=== PATIENT | male | born 1990 | race Two or more races ===

== ENCOUNTER 2023-07-08 10:16 | Inpatient (IN) | payer SELFPAY ==
[~2023-07-08] VITALS: Ht 160 cm; Wt 45.0 kg
[2023-07-08] MEDS ORDERED: SODIUM CHLORIDE 0.9% 1,350 ML IV ONE (11:15)
[2023-07-08 11:35] LABS: Basophils # (auto) 0 10 ^3/uL (0-0.2); Basophils % (auto) 0.1 % (0.0-2.0); Eosinophils # (auto) 0 10 ^3/uL (0-0.8); Eosinophils % (auto) 0.1 % (0.0-7.0); Hematocrit 43.2 % (41.0-53.0); Hemoglobin 14.6 g/dL (13.5-17.5); Lymphocytes % (auto) 42.3 % (10.0-50.0); Mean Corpuscular Hemoglobin 28.3 pg (28.0-32.0); Mean Corpuscular Hgb Conc. 33.7 g/dL (32.0-36.0); Mean Corpuscular Volume 84.2 fL (80.0-100.0); Monocytes # (auto) 0.7 10 ^3/uL (0-1.3); Monocytes % (auto) 10.1 % (0.0-12.0); Neutrophils # (auto) 3.3 10 ^3/uL (1.6-8.6); Neutrophils % (auto) 47.4 % (37.0-80.0); Nucleated Red Blood Cells % 0.4 %; Red Blood Cells 5.13 10^6/uL (4.5-5.90); Red Cell Distribution Width 12.6 % (11.8-14.3)
[2023-07-08 11:42] LABS: Urine Bacteria FEW /hpf (None Seen); Urine Blood Negative /uL (Negative); Urine Clarity Clear (Clear); Urine Color Yellow (Yellow); Urine Protein, UAD 1+ (Negative); Urine Specific Gravity 1.028 (1.001-1.035); Urine Urobilinogen Normal (Negative); Urine WBC 2 /hpf (0 - 3); Urine pH 5.5 (5.0-8.0)
[2023-07-08 11:52] LABS: Amphetamine Screen, Urine Neg (NEGATIVE); Barbiturate Scree,Urine Neg (NEGATIVE); Benzodiazephine Screen, Urine Neg (NEGATIVE); Cocaine Screen, Urine Neg (NEGATIVE); Opiate Scree,Urine Neg (NEGATIVE)
[2023-07-08 11:53] LABS: Cannabinoid Screen, Urine Pos (NEGATIVE); Phencyclidine Screen, Urine Neg (NEGATIVE)
[2023-07-08 11:55] LABS: Acetaminophen < 2.0 UG/ML (10.0-20.0)
[2023-07-08 11:56] LABS: Alanine Aminotransferase 118 U/L (7-40); Albumin 4.7 g/dL (3.2-4.8); Alkaline Phosphatase 254 U/L (46-116); Anion Gap 12 (5-15); Aspartate Aminotransferase 108 U/L (13-40); BUN/Creatinine Ratio 23.2 (10.0-20.0); Bilirubin, Total 1.2 mg/dL (0.2-1.0); Blood Urea Nitrogen 13 mg/dL (9-23); Calcium 11.5 mg/dL (8.7-10.4); Carbon Dioxide 21 mmol/L (20-30); Chloride 100 mmol/L (98-107); Glucose 121 mg/dL (74-106); Lipase 35 U/L (12-53); Sodium 133 mmol/L (136-145); Total Protein 7.4 g/dL (5.7-8.2)
[2023-07-08 11:58] LABS: Free T4 (Free Thyroxine) 11.87 ng/dL (0.89-1.76)
[2023-07-08] MEDS ORDERED: ONDANSETRON HCL 4 MG/2 ML VIAL IV ONE (12:00)
[2023-07-08 12:11] LABS: Salicylate < 3.0 mg/dL (2.8-20.0)
[2023-07-08] MEDS ORDERED: DexAMETHasone SOD PHOS 10MG/1ML VIAL INJ IV ONE (13:00)
[2023-07-08] MEDS ORDERED: methIMAzole 5 MG TAB PO ONE ×2 (13:00→14:15)
[2023-07-08] MEDS ORDERED: PROPYLTHIOURACIL 50 MG TAB PO ONE (13:00)
[2023-07-08 16:07] LABS: Base Excess -5.2 mmol/L (-2.0-2.0)
[2023-07-08] MEDS ORDERED: DOCUSATE SOD 100 MG CAP PO PRN (18:30)
[2023-07-08] MEDS ORDERED: NITROGLYCERIN 0.4 MG SL TAB SL PRN (18:30)
[2023-07-08] MEDS ORDERED: ACETAMINOPHEN 325 MG TAB PO PRN (18:30)
[2023-07-08] MEDS ORDERED: MORPHINE SULFATE INJ 2 MG/ml SYRG IV PRN (18:30)
[2023-07-08] MEDS ORDERED: ONDANSETRON HCL 4 MG/2 ML VIAL IV PRN (18:30)
[2023-07-08] MEDS: SODIUM CHLORIDE 0.9% 1,000 ML IV SCH ×2 (19:44→23:46)
[2023-07-08] MEDS: methIMAzole 5 MG TAB PO SCH (23:41)
[2023-07-08] MEDS: PROPRANOLOL HCL 20 MG TAB PO SCH (23:42)
[2023-07-09] VITALS (8 sets, daily range): BP systolic 128–159; BP diastolic 80–95; PULSE 90–109; RESP 16–22; TEMP 97.6–97.9; O2SAT 95–100
[2023-07-09 05:16] LABS: Basophils # (auto) 0 10 ^3/uL (0-0.2); Eosinophils # (auto) 0 10 ^3/uL (0-0.8); Hematocrit 36.5 % (41.0-53.0); Hemoglobin 12.6 g/dL (13.5-17.5); Lymphocytes # (auto) 1.3 10 ^3/uL (0.4-5.4); Lymphocytes % (auto) 26.9 % (10.0-50.0); Mean Corpuscular Hemoglobin 28.5 pg (28.0-32.0); Mean Corpuscular Hgb Conc. 34.5 g/dL (32.0-36.0); Mean Corpuscular Volume 82.6 fL (80.0-100.0); Monocytes # (auto) 0.6 10 ^3/uL (0-1.3); Monocytes % (auto) 12.6 % (0.0-12.0); Neutrophils % (auto) 60.5 % (37.0-80.0); Nucleated Red Blood Cells % 0.1 %; Red Blood Cells 4.41 10^6/uL (4.5-5.90); Red Cell Distribution Width 13.1 % (11.8-14.3)
[2023-07-09 05:33] LABS: Alanine Aminotransferase 97 U/L (7-40); Alkaline Phosphatase 224 U/L (46-116); Anion Gap 8 (5-15); BUN/Creatinine Ratio 24.4 (10.0-20.0); Blood Urea Nitrogen 11 mg/dL (9-23); Calcium 10.3 mg/dL (8.7-10.4); Carbon Dioxide 25 mmol/L (20-30); Chloride 105 mmol/L (98-107); Glucose 187 mg/dL (74-106); Potassium 3.4 mmol/L (3.5-5.1); Sodium 138 mmol/L (136-145)
[2023-07-09 05:34] LABS: Albumin 4.2 g/dL (3.2-4.8)
[2023-07-09 05:35] LABS: Aspartate Aminotransferase 57 U/L (13-40); Bilirubin, Total 0.7 mg/dL (0.2-1.0); Total Protein 6.7 g/dL (5.7-8.2)
[2023-07-09 05:53] LABS: Triglycerides 73 mg/dL (< 150)
[2023-07-09 05:54] LABS: LDL Cholesterol 41 mg/dL (< 100)
[2023-07-09 05:55] LABS: Cholesterol 96 mg/dL (< 200); HDL Cholesterol 35 mg/dL (40-59)
[2023-07-09] MEDS: methIMAzole 5 MG TAB PO SCH ×3 (06:47→21:59)
[2023-07-09] MEDS: PROPRANOLOL HCL 20 MG TAB PO SCH ×2 (09:58→21:58)
[2023-07-09] MEDS: ENOXAPARIN SOD 40 MG/0.4 ML SYRINGE SC SCH (10:12)
[2023-07-09] MEDS: SODIUM CHLORIDE 0.9% 1,000 ML IV SCH ×3 (10:12→22:00)
[2023-07-09] MEDS ORDERED: POTASSIUM EFFERVESENT TAB 25 MEQ PO ONE (11:45)
[2023-07-10] VITALS (7 sets, daily range): BP systolic 115–137; BP diastolic 64–79; PULSE 73–90; RESP 16–22; TEMP 97.8–98.3; O2SAT 97–100
[2023-07-10] MEDS: SODIUM CHLORIDE 0.9% 1,000 ML IV SCH ×2 (04:05→10:45)
[2023-07-10] MEDS: methIMAzole 5 MG TAB PO SCH ×3 (06:12→22:56)
[2023-07-10] MEDS: ENOXAPARIN SOD 40 MG/0.4 ML SYRINGE SC SCH (10:27)
[2023-07-10] MEDS: PROPRANOLOL HCL 20 MG TAB PO SCH ×2 (10:27→22:55)
[2023-07-11 05:00] VITALS: BP 130/58; PULSE 88; RESP 18; TEMP 97.9; O2SAT 100
[2023-07-11] MEDS: methIMAzole 5 MG TAB PO SCH (05:17)
[2023-07-11 08:15] VITALS: BP 109/52; PULSE 73; RESP 18; TEMP 97.3
[2023-07-11 09:00] VITALS: BP 109/53; PULSE 73; RESP 18; TEMP 97.7; O2SAT 95
[2023-07-11] MEDS: PROPRANOLOL HCL 20 MG TAB PO SCH (09:54)
[2023-07-11] MEDS: ENOXAPARIN SOD 40 MG/0.4 ML SYRINGE SC SCH (09:55)
[2023-07-11] MEDS ORDERED: METH-552 PO (11:53)
[2023-07-11 12:31] VITALS: BP 109/52; PULSE 73; RESP 18; TEMP 97.7; O2SAT 95
[2023-07-12 10:38] LABS: Hepatitis B Surface Antigen Negative (Negative)
[2023-07-12 10:59] LABS: Hepatitis A Ab IgM Negative
[2023-07-12 11:00] LABS: Hepatitis B Core IgM Negative; Hepatitis C Antibody Negative (Negative)
== END 2023-07-11 13:20 | disposition home or self-care (01) | DRG 645 ==
LOC: ER 10:16 → TELE 18:25 → TELE-CENTR 07-09 08:15
PROVIDERS: ADMIT Nurse Practitioner Family; ATTEND Internal Medicine
DX: E05.90 Thyrotoxicosis, unspecified without thyrotoxic crisis or storm (principal); F12.10 Cannabis abuse, uncomplicated; R00.0 Tachycardia, unspecified; R11.2 Nausea with vomiting, unspecified; R50.9 Fever, unspecified; R74.01 Elevation of levels of liver transaminase levels; Z90.49 Acquired absence of other specified parts of digestive tract; Z79.899 Other long term (current) drug therapy; Z87.891 Personal history of nicotine dependence
CPT/HCPCS: 36415; 36600; 71045; 74176; 76536; 80053; 80061; 80074; 80307; 80320; 80329; 81001; 82805; 83036; 83605; 83690; 84439; 84443; 84481; 85025; 87040; 96361; 96374; 99291; G0378; J1100; J2405

== ENCOUNTER 2024-10-10 09:49 | Inpatient (IN) | payer MEDICAID, OTHER ==
[~2024-10-10] VITALS: Ht 160 cm; Wt 52.0 kg
[~2024-10-10 09:49] MED LIST: METH-552 PO
--- NOTE | 2024-10-10 10:53 | ED.PDOC ---
HPI Comments 34 y/o M, with PMHX of HTN, anxiety, and hyperthyroid presents to the ED for CC of high blood pressure. Patient states, that he has been experiencing high blood pressure reading with associated heart palpitations x hours. Patient relays, that he experiences heart palpitations with light exertion when going up his stairs. Patient denies chest pain, dizziness, headache, or shortness of breath. No other symptoms or modifying factors at this time. Chief Complaint: High Blood Pressure Time Seen by MD: 10:00 Reviewed Notes: Nurses Notes, Medications, Allergies Allergies: Coded Allergies: NO KNOWN ALLERGIES (Unverified , 07/08/23) Home Meds Active Scripts Methimazole (Methimazole) 10 Mg Tab, 10 MG PO TID, #90 TAB 5 Refills Prov:JARET WARREN MD 07/11/23 Information Source: Patient Mode of Arrival: Ambulatory Severity: Moderate Timing: Hours Duration: Since onset Prehospital treatment: None Onset: With Light Exertion Cardiac Risk Factors: None PE Risk Factors: None History of: None Associated Signs and Symptoms: Palpitations Past Medical History PAST MEDICAL HISTORY: Denies Surgical History: Cholecystectomy Family History Family History: Reviewed,noncontributory to illness Social History Smoker: Quit Less Than 1 Year Alcohol: Denies ETOH Use Drugs: Marijuana Lives In: Home Constitutional: denies: chills, diaphoresis, fatigue, fever, malaise, sweats, weakness, others EENTM: denies: blurred vision, double vision, ear bleeding, ear discharge, ear drainage, ear pain, ear ringing, eye pain, eye redness, hearing loss, mouth pain, mouth swelling, nasal discharge, nose bleeding, nose congestion, nose pain, photophobia, tearing, throat pain, throat swelling, voice changes, others Respiratory: denies: cough, hemoptysis, orthopnea, SOB at rest, shortness of breath, SOB with excertion, stridor, wheezing, others Cardiovascular: reports: palpitations; denies: chest pain, dizzy spells, diaphoresis, Dyspnea on exertion, edema, irregular heart beat, left arm pain, lightheadedness, PND, syncope, others Gastrointestinal: denies: abdomen distended, abdominal pain, blood streaked bowels, constipated, diarrhea, dysphagia, difficulty swallowing, hematemesis, melena, nausea, poor appetite, poor fluid intake, rectal bleeding, rectal pain, vomiting, others Genitourinary: denies: burning, dysuria, flank pain, frequency, hematuria, incontinence, penile discharge, penile sore, pain, testicle pain, testicle swelling, urgency, others Neurological: denies: dizziness, fainting, headache, left sided numbness, left sided weakness, numbness, paresthesia, pre-existing deficit, right sided numbness, right sided weakness, seizure, speech problems, tingling, tremors, weakness, others Musculoskeletal: denies: back pain, gout, joint pain, joint swelling, muscle pain, muscle stiffness, neck pain, others Integumetry: denies: bruises, change in color, change in hair/nails, dryness, laceration, lesions, lumps, rash, wounds, others Allergic/Immunocompromised: denies: Difficulty Healing, Frequent Infections, Hives, Itching, others Hematologic/Lymphatic: denies: anemia, blood clots, easy bleeding, easy bruising, swollen glands, others Endocrine: denies: excessive hunger, excessive sweating, excessive thirst, excessive urination, flushing, intolerance to cold, intolerance to heat, unexplained weight gain, unexplained weight loss, others Psychiatric: denies: anxiety, bipolar disorder, depression, hopeless, panic disorder, schizophrenia, sleepless, suicidal, others All Other Systems: Reviewed and Negative Physical Exam General Appearance: Moderate Distress HEENT: Normal ENT Inspection, Pharynx Normal, TMs Normal Neck: Full Range of Motion, Non-Tender, Normal, Normal Inspection Respiratory: Chest Non-Tender, Lungs Clear, No Accessory Muscle Use, No Respiratory Distress, Normal Breath Sounds Cardiovascular: Tachycardia Breast Exam: Deferred Gastrointestinal: No Organomegaly, Non Tender, No Pulsatile Mass, Normal Bowel Sounds, Soft Genitalia: Deferred Pelvic: Deferred Rectal: Deferred Extremities: No calf tenderness, Normal capillary refill, Normal inspection, Normal range of motion, Non-tender, No pedal edema Musculoskeletal : Apperance: Normal Neurologic: Alert, chemistry associate II-XII nml as Tested, No Motor Deficits, Normal Affect, Normal Mood, No Sensory Deficits Cerebellar Function: Normal Reflexes: Normal Skin: Dry, Normal Color, Warm Peripheral Pulses: 3+ Radial (R), 3+ Radial (L) Lymphatic: No Adenopathy Was a procedure done? Was a procedure done?: No CP Differential Dx Differential Diagnosis: A-fib, A-Flutter, Angina, Anxiety / Panic Attack, Atrial Dysrhythmia, Electrolyte Disorder Differential Diagnosis: HTN Essential, HTN Accelerated Differential Diagnosis: Chest Wall Pain, Costochondritis X-Ray, Labs, Meds, VS Vital Signs Date Time Temp Pulse Resp B/P (MAP) Pulse Ox O2 Delivery O2 Flow Rate FiO2 10/10/24 10:16 98.9 154 19 147/111 (123) 98 10/10/24 10:15 135 Lab Test 10/10/24 10:38 Range/Units White Blood Count 8.9 4.4-10.8 10^3/uL Red Blood Count 4.99 4.5-5.90 10^6/uL Hemoglobin 14.9 13.5-17.5 g/dL Hematocrit 43.0 41.0-53.0 % Mean Corpuscular Volume 86.2 80.0-100.0 fL Mean Corpuscular Hemoglobin 30.0 28.0-32.0 pg Mean Corpuscular Hemoglobin Concent 34.8 32.0-36.0 g/dL Red Cell Distribution Width 12.0 11.8-14.3 % Platelet Count 312 140-450 10^3/uL Mean Platelet Volume 8.7 6.9-10.8 fL Neutrophils (%) (Auto) 50.6 37.0-80.0 % Lymphocytes (%) (Auto) 37.8 10.0-50.0 % Monocytes (%) (Auto) 11.1 0.0-12.0 % Eosinophils (%) (Auto) 0.3 0.0-7.0 % Basophils (%) (Auto) 0.2 0.0-2.0 % Neutrophils # (Auto) 4.5 1.6-8.6 10 ^3/uL Lymphocytes # (Auto) 3.3 0.4-5.4 10 ^3/uL Monocytes # (Auto) 1.0 0-1.3 10 ^3/uL Eosinophils # (Auto) 0 0-0.8 10 ^3/uL Basophils # (Auto) 0 0-0.2 10 ^3/uL Nucleated Red Blood Cells 0.1 % Sodium Level 134 L 136-145 mmol/L Potassium Level 3.7 3.5-5.1 mmol/L Chloride Level 98 98-107 mmol/L Carbon Dioxide Level 26 20-31 mmol/L Anion Gap 10 5-15 Blood Urea Nitrogen 15 9-23 mg/dL Creatinine 0.71 0.700-1.30 mg/dL Glomerular Filtration Rate Calc 123 >90 mL/min BUN/Creatinine Ratio 21.1 H 10.0-20.0 Serum Glucose 152 H 74-106 mg/dL Calcium Level 11.3 H 8.7-10.4 mg/dL Troponin I High Sensitivity 30 </=54 ng/L Patient alert. Complaining of palpitations. Tachycardia. Blood sugar elevated. Cardiac marker within normal limits. Possibly will need echocardiogram. Continues to be tachycardic. Explained to the patient. EKG reviewed does not show any acute process. Cardiology consultation. Continue cardiac monitoring. Time of 1ST Reevaluation: 10:30 Reevaluation 1ST: Unchanged Patient Education/Counseling: Diagnosis, Treatment Family Education/Counseling: No Family Present Additional Information I reviewed the following notes from patient's past medical encounters: 07/08/23 The following tests were ordered, and results were reviewed by me: TROPONIN, CBC, BMP, EKG I discussed treatment and results with medical personnel and: PATIENT Departure 1 Departure Time of Disposition: 14:45 Impression: Primary Impression: Tachycardia Additional Impression: Hyperthyroidism Disposition: 09 ADMITTED INPATIENT Admit to: Med Surg Condition: Guarded Critical Care Note Critical Care Time?: Yes (45 min-critical care time only) Critical care comment: Tachycardia Stability Stability form required: No Heart Score Heart Score: Heart Score Response (Comments) Value History Slightly Suspicious 0 EKG Normal 0 Age <45 0 Risk Factors 1 or 2 risk factors 1 Troponin Normal limit 0 Total 1 I personally scribed for MANOHAR JAMES MD ([email or web address]) on 10/10/24 at 10:53. Electronically submitted by Cecile Macedo ([email or web address]). I personally scribed for MANOHAR JAMES MD ([email or web address]) on 10/10/24 at 11:47. Electronically submitted by Cecile Macedo ([email or web address]). MANOHAR JAMES MD Oct 10, 2024 10:53
[2024-10-10 10:58] LABS: Basophils # (auto) 0 10 ^3/uL (0-0.2); Basophils % (auto) 0.2 % (0.0-2.0); Eosinophils # (auto) 0 10 ^3/uL (0-0.8); Eosinophils % (auto) 0.3 % (0.0-7.0); Hemoglobin 14.9 g/dL (13.5-17.5); Lymphocytes # (auto) 3.3 10 ^3/uL (0.4-5.4); Lymphocytes % (auto) 37.8 % (10.0-50.0); Mean Corpuscular Hgb Conc. 34.8 g/dL (32.0-36.0); Mean Corpuscular Volume 86.2 fL (80.0-100.0); Monocytes % (auto) 11.1 % (0.0-12.0); Neutrophils # (auto) 4.5 10 ^3/uL (1.6-8.6); Neutrophils % (auto) 50.6 % (37.0-80.0); Nucleated Red Blood Cells % 0.1 %; Platelet Count (auto) 312 10^3/uL (140-450); Red Blood Cells 4.99 10^6/uL (4.5-5.90); White Blood Cell 8.9 10^3/uL (4.4-10.8)
[2024-10-10 11:13] LABS: Potassium 3.7 mmol/L (3.5-5.1)
[2024-10-10 11:14] LABS: Anion Gap 10 (5-15); Carbon Dioxide 26 mmol/L (20-31)
[2024-10-10 11:19] LABS: BUN/Creatinine Ratio 21.1 (10.0-20.0); Blood Urea Nitrogen 15 mg/dL (9-23); Calcium 11.3 mg/dL (8.7-10.4); Chloride 98 mmol/L (98-107); Sodium 134 mmol/L (136-145)
[2024-10-10 11:22] LABS: Glucose 152 mg/dL (74-106)
[2024-10-10] MEDS ORDERED: NITROGLYCERIN 0.4 MG SL TAB SL PRN (18:45)
[2024-10-10] MEDS ORDERED: MORPHINE SULFATE INJ 2 MG/ml SYRG IV PRN (18:45)
[2024-10-10] MEDS ORDERED: ACETAMINOPHEN 325 MG TAB PO PRN (18:45)
[2024-10-10] MEDS ORDERED: ONDANSETRON HCL 4 MG/2 ML VIAL IV PRN (18:45)
--- NOTE | 2024-10-10 20:00 | DVH ---
ULTRASOUND SOFT TISSUE HEAD AND NECK CLINICAL INDICATION: Hyperthyroidism TECHNIQUE: Multiple real time sonographic images of the thyroid were obtained. COMPARISON: 07/08/2023 FINDINGS: The right thyroid gland measures 5.1 x 2.7 x 2.9 cm. The left thyroid gland measures approximately 5 x 2.4 x 3 cm. The isthmus measures 0.6 cm. Heterogeneous hypervascular thyroid with no focal nodules noted. IMPRESSION: Heterogeneous, hypervascular enlarged thyroid with no focal nodules noted. Differentials include thyr oiditis/Graves disease.
[2024-10-10] MEDS: PROPRANOLOL HCL 20 MG TAB PO ONE (20:01)
[2024-10-10 20:28] VITALS: PULSE 120; RESP 20; O2SAT 95
[2024-10-10 20:55] VITALS: PULSE 104; RESP 16; O2SAT 98
[2024-10-10] MEDS: methIMAzole 5 MG TAB PO SCH (21:29)
[2024-10-10 22:00] VITALS: BP 125/85; PULSE 104; RESP 16; TEMP 98.2; O2SAT 95
[2024-10-11] VITALS (8 sets, daily range): BP systolic 114–138; BP diastolic 68–81; PULSE 93–109; RESP 15–18; TEMP 97.8–98.5; O2SAT 97–100
--- NOTE | 2024-10-11 00:15 | DVHHP2 ---
History of Present Illness Reason for Visit: Palpitations History of Present Illness 34-year-old male presents for evaluation of palpitations. Patient reports having history of hyperthyroid. He states being taken off his methimazole on July last year. He reports a four day history of having intermittent palpitations. He states today the symptoms were more constant with associated shortness for breath. He denies chest pain or dizziness. Denies any other acute symptoms at the moment. Past Medical History Hyperthyroid Past Surgical History Cholecystectomy Family History Noncontributory Smoke: <1 pack per day ALCOHOL: none Drugs: Marijuana Lives: with Family Review of Systems Review of Systems Review of systems are currently negative otherwise addressed HPI. Allergies: Coded Allergies: NO KNOWN ALLERGIES (Unverified , 07/08/23) Medications Current Medications Medications Dose Ordered Sig/Lisa Route Start Time Stop Time Status Last Admin Dose Admin Propranolol HCl 40 mg TID PO 10/11/24 06:00 Methimazole 10 mg Q8HR PO 10/10/24 22:00 10/10/24 21:29 10 MG Temazepam 15 mg QHSP PRN PO 10/10/24 18:45 Ondansetron HCl 4 mg Q4HP PRN IV 10/10/24 18:45 Acetaminophen 650 mg Q6HP PRN PO 10/10/24 18:45 Nitroglycerin 0.4 mg Q5MINP PRN SL 10/10/24 18:45 Morphine Sulfate 2 mg Q30M PRN IV 10/10/24 18:45 Exam Vital Signs Vital Signs Date Time Temp Pulse Resp B/P (MAP) Pulse Ox O2 Delivery O2 Flow Rate FiO2 10/10/24 22:00 98.2 104 16 125/85 (98) 95 98.2 10/10/24 20:55 Room Air* 0 21 Exam Gen: 34-year-old male in mild distress Skin: Warm, dry, normal color and texture, no rash. HEENT: Normocephalic atraumatic, mucous membranes moist and pink. Neck: Cervical and supraclavicular nodes normal without enlargement, trachea is midline, thyroid gland is normal without masses. Pulmonary: Clear to auscultation and percussion bilaterally. Cardiac: Sinus tachycardic Abdomen: Soft, nontender, nondistended, bowel sounds present all 4 quadrants, no guarding, no rigidity, no organomegaly. Extremities: No cyanosis, clubbing, no edema Neuro: Cranial nerves II through XII grossly intact, normal affect and speech, no focal motor deficits. Labs/Xrays ORDERING PHYSICIAN: ISMAEL JORGENSEN PROCEDURE(s): THYDU - THYROID REASON: hyperthyroid ORDER NUMBER(s): [id number], ACCESSION NUMBER(s): [id number] ULTRASOUND SOFT TISSUE HEAD AND NECK CLINICAL INDICATION: Hyperthyroidism TECHNIQUE: Multiple real time sonographic images of the thyroid were obtained. COMPARISON: 07/08/2023 FINDINGS: The right thyroid gland measures 5.1 x 2.7 x 2.9 cm. The left thyroid gland measures approximately 5 x 2.4 x 3 cm. The isthmus measures 0.6 cm. Heterogeneous hypervascular thyroid with no focal nodules noted. IMPRESSION: Heterogeneous, hypervascular enlarged thyroid with no focal nodules noted. Differentials include thyroiditis/Graves disease. Labs Test 10/10/24 19:43 10/10/24 10:38 Range/Units White Blood Count 8.9 4.4-10.8 10^3/uL Red Blood Count 4.99 4.5-5.90 10^6/uL Hemoglobin 14.9 13.5-17.5 g/dL Hematocrit 43.0 41.0-53.0 % Mean Corpuscular Volume 86.2 80.0-100.0 fL Mean Corpuscular Hemoglobin 30.0 28.0-32.0 pg Mean Corpuscular Hemoglobin Concent 34.8 32.0-36.0 g/dL Red Cell Distribution Width 12.0 11.8-14.3 % Platelet Count 312 140-450 10^3/uL Mean Platelet Volume 8.7 6.9-10.8 fL Neutrophils (%) (Auto) 50.6 37.0-80.0 % Lymphocytes (%) (Auto) 37.8 10.0-50.0 % Monocytes (%) (Auto) 11.1 0.0-12.0 % Eosinophils (%) (Auto) 0.3 0.0-7.0 % Basophils (%) (Auto) 0.2 0.0-2.0 % Neutrophils # (Auto) 4.5 1.6-8.6 10 ^3/uL Lymphocytes # (Auto) 3.3 0.4-5.4 10 ^3/uL Monocytes # (Auto) 1.0 0-1.3 10 ^3/uL Eosinophils # (Auto) 0 0-0.8 10 ^3/uL Basophils # (Auto) 0 0-0.2 10 ^3/uL Nucleated Red Blood Cells 0.1 % Sodium Level 134 L 136-145 mmol/L Potassium Level 3.7 3.5-5.1 mmol/L Chloride Level 98 98-107 mmol/L Carbon Dioxide Level 26 20-31 mmol/L Anion Gap 10 5-15 Blood Urea Nitrogen 15 9-23 mg/dL Creatinine 0.71 0.700-1.30 mg/dL Glomerular Filtration Rate Calc 123 >90 mL/min BUN/Creatinine Ratio 21.1 H 10.0-20.0 Serum Glucose 152 H 74-106 mg/dL Calcium Level 11.3 H 8.7-10.4 mg/dL Troponin I High Sensitivity 30 </=54 ng/L Thyroid Stimulating Hormone (TSH) 0.01 L 0.55-4.78 uIU/mL Assessment/Plan Assessment/Plan Assessment Thyroid crisis Palpitations Plan Admit the patient to telemetry to the hospitalist Endocrinology consultation Resume methimazole Start propranolol Thyroid panel pending Continue treatment per orders Plan discussed with: Patient My Orders Orders - ISMAEL JORGENSEN Procedure Category Date Status Time Methimazole Tab PHA 10/10/24 In Process (Tapazole) 22:00 Thyroid Panel LAB 10/10/24 In Process 18:41 Basic Metabolic Panel LAB 10/11/24 Logged 04:00 Admit ADMIT 10/10/24 Transmitted 18:41 Temazepam (Restoril) PHA 10/10/24 In Process 18:45 Ondansetron Hcl PHA 10/10/24 In Process (Zofran) 18:45 Cardiac DIET 10/11/24 Transmitted Diet-2gna,Lofat,Lochol Breakfast Condition: Fair DEMARCO 10/10/24 In Process 18:41 Acetaminophen Tablet PHA 10/10/24 In Process (Tylenol Tablet) 18:45 Bedrest With Bathroom DEMARCO 10/10/24 In Process Privileg 18:41 Nitroglycerin PHA 10/10/24 In Process Sublingual (Ntrostat 18:45 Morphine Sulfate PHA 10/10/24 In Process Injection 18:45 Stat Ekg For Chest DEMARCO 10/10/24 In Process Pain 18:41 Notify Of Changes DEMARCO 10/10/24 In Process From Base 18:41 Shoe Shanker For [facility] 10/10/24 In Process 24 Hours 18:41 Emergency Dysrhythmia DEMARCO 10/10/24 In Process Protocol 18:41 Rhythm Strips Once DEMARCO 10/10/24 In Process Every Shift 18:41 Oxygen By Nasal RT 10/10/24 Transmitted Cannula 18:41 Thyroid US 10/10/24 Resulted 18:41 Propranolol Hcl PHA 10/11/24 In Process Tablet (Inderal 06:00 * Endocrinology CONS 10/11/24 Verified Consult 00:10 Date of Service: Oct 10, 2024 Billing Provider: ISMAEL JORGENSEN Common Visit Codes: 07078-[id number] INP/OBS CARE (HIGH) ISMAEL JORGENSEN Oct 11, 2024 00:15
[2024-10-11] MEDS: PROPRANOLOL HCL 20 MG TAB PO SCH ×2 (05:52→18:59)
--- NOTE | 2024-10-11 07:11 | ECG ---
[facility] Test Date: 2024-10-10 Test Time: 19:19:56 Pat Name: SYDNIE MEYER Department: ed Room: 0295T A Gender: M Core Cutter: ginny : 1990 Requested By: MANOHAR JAMES Order Number: [id number] Reading MD: Franco Castorena Measurements Intervals [place] Rate: 142 P: 79 IL: 115 QRS: 53 QRSD: 78 T: -3 QT: 271 QTc: 417 Interpretive Statements Sinus tachycardia Consider right atrial enlargement Consider left ventricular hypertrophy ST depr, consider ischemia, inferior leads Anterior ST elevation, probably due to LVH Electronically Signed On 10-11-2024 8:56:20 PST by Franco Castorena Please click the below link to view image of tracing.
[2024-10-11 07:48] LABS: Chloride 99 mmol/L (98-107); Potassium 3.7 mmol/L (3.5-5.1)
[2024-10-11 07:49] LABS: Anion Gap 9 (5-15); Carbon Dioxide 26 mmol/L (20-31)
[2024-10-11 07:54] LABS: BUN/Creatinine Ratio 22.8 (10.0-20.0); Blood Urea Nitrogen 13 mg/dL (9-23); Glucose 98 mg/dL (74-106)
[2024-10-11 07:56] LABS: Calcium 10.6 mg/dL (8.7-10.4); Sodium 134 mmol/L (136-145)
--- NOTE | 2024-10-11 09:11 | ECG ---
[facility] Test Date: 2024-10-10 Test Time: 10:15:13 Pat Name: SYDNIE MEYER Department: ER Room: 0295T A Gender: M Newsperson: HARJINDER : 1990 Requested By: MANOHAR JAMES Order Number: [id number] Reading MD: Franco Castorena Measurements Intervals [place] Rate: 135 P: 70 MA: 131 QRS: 55 QRSD: 83 T: -3 QT: 269 QTc: 404 Interpretive Statements Sinus tachycardia Consider right atrial enlargement Consider left ventricular hypertrophy Repol abnrm suggests ischemia, inferior leads Anterior ST elevation, probably due to LVH Baseline wander in lead(s) V6 Electronically Signed On 10-11-2024 15:14:27 PST by Franco Castorena Please click the below link to view image of tracing.
--- NOTE | 2024-10-11 18:10 | DVHINCON2 ---
Date of service: Oct 11, 2024 Reason for Consultation hyperthyroidism History of Present Illness 34yo M with a history of hyperthyroidism who presented to the hospital on with palpitations. Patient states he had been experiencing palpitations and intermittent heat intolerance over the past few weeks. He was diagnosed with hyperthyroidism during hospitalization in late 2022. He had been followed actively by an outside [employer]tr [employer] truck driver who had placed patient on methimazole 10mg daily. No beta- ava reportedly prescribed. He stated his thyroid function had remained well under control and so medication was discontinued in approximately July 2024. He has felt within usual health since then until shortly prior to admission. Patient does not have significant family history of autoimmune conditions. Upon admission patient with significant tachycardia. TSH 0.01. FT4 pending. Since admission patient has been maintained on MMI as well as propranolol with significant improvement in his BP and HR overall. Upon interview patient states his initial symptomatology has significantly improved. Family History: Hypertension G8 MOTHER Thyroid disease G8 MOTHER Allergies: Coded Allergies: NO KNOWN ALLERGIES (Unverified , 07/08/23) Home Meds No Active Prescriptions or Reported Meds Current Medications Current Medications Medications (Trade) Dose Ordered Sig/Lisa Route PRN Reason Start Time Stop Time Status Last Admin Propranolol HCl (Inderal Tablet) 40 mg TID PO 10/11/24 06:00 10/11/24 14:39 Methimazole (Tapazole) 10 mg Q8HR PO 10/10/24 22:00 10/11/24 13:59 DC 10/11/24 05:52 Temazepam (Restoril) 15 mg QHSP PRN PO FOR INSOMNIA 10/10/24 18:45 Ondansetron HCl (Zofran) 4 mg Q4HP PRN IV NAUSEA / VOMITING 10/10/24 18:45 Acetaminophen (Tylenol Tablet) 650 mg Q6HP PRN PO PAIN SCALE 1-3 OR TEMP>100.4 10/10/24 18:45 Nitroglycerin (Ntrostat Sublingual) 0.4 mg Q5MINP PRN SL FOR CHEST PAIN 10/10/24 18:45 Morphine Sulfate 2 mg Q30M PRN IV FOR CHEST PAIN 10/10/24 18:45 Methimazole (Tapazole) 20 mg Q6HR PO 10/11/24 18:00 Review of Systems Negative except that which is stated in HPI Vital Signs Vital Signs Date Time Temp Pulse Resp B/P (MAP) Pulse Ox O2 Delivery O2 Flow Rate FiO2 10/11/24 16:46 97.9 93 18 138/74 (95) 98 97.9 10/11/24 08:00 Room Air* 0 21 Physical Exam Gen - lying down in no acute distress HEENT - no thyromegaly, nontender thyroid CV - tachycardic Resp - nonlabored respirations Ext - no edema Psych - AOx4 Labs/Diagnostic Data Labs Test 10/11/24 14:45 10/11/24 07:18 10/10/24 19:43 10/10/24 10:38 Range/Units Sodium Level 134 L 136-145 mmol/L Potassium Level 3.7 3.5-5.1 mmol/L Chloride Level 99 98-107 mmol/L Carbon Dioxide Level 26 20-31 mmol/L Anion Gap 9 5-15 Blood Urea Nitrogen 13 9-23 mg/dL Creatinine 0.57 L 0.700-1.30 mg/dL Glomerular Filtration Rate Calc 131 >90 mL/min BUN/Creatinine Ratio 22.8 H 10.0-20.0 Serum Glucose 98 74-106 mg/dL Calcium Level 10.6 H 8.7-10.4 mg/dL White Blood Count 8.9 4.4-10.8 10^3/uL Red Blood Count 4.99 4.5-5.90 10^6/uL Hemoglobin 14.9 13.5-17.5 g/dL Hematocrit 43.0 41.0-53.0 % Mean Corpuscular Volume 86.2 80.0-100.0 fL Mean Corpuscular Hemoglobin 30.0 28.0-32.0 pg Mean Corpuscular Hemoglobin Concent 34.8 32.0-36.0 g/dL Red Cell Distribution Width 12.0 11.8-14.3 % Platelet Count 312 140-450 10^3/uL Mean Platelet Volume 8.7 6.9-10.8 fL Neutrophils (%) (Auto) 50.6 37.0-80.0 % Lymphocytes (%) (Auto) 37.8 10.0-50.0 % Monocytes (%) (Auto) 11.1 0.0-12.0 % Eosinophils (%) (Auto) 0.3 0.0-7.0 % Basophils (%) (Auto) 0.2 0.0-2.0 % Neutrophils # (Auto) 4.5 1.6-8.6 10 ^3/uL Lymphocytes # (Auto) 3.3 0.4-5.4 10 ^3/uL Monocytes # (Auto) 1.0 0-1.3 10 ^3/uL Eosinophils # (Auto) 0 0-0.8 10 ^3/uL Basophils # (Auto) 0 0-0.2 10 ^3/uL Nucleated Red Blood Cells 0.1 % Troponin I High Sensitivity 30 </=54 ng/L Thyroid Stimulating Hormone (TSH) 0.01 L 0.55-4.78 uIU/mL Assessment # Thyrotoxicosis # Hypercalcemia # Tachycardia Multiple years of underlying hyperthyroidism of unclear etiology, although likely autoimmune mediated, which had been in remission as of medication discontinuation in 07/2024. Potentially has relapsed due to underlying viral URI or persistent Ab status. No concern for thyroid storm. - Recommend reduce dose of methimazole to 20mg bid - Increase propranolol 40mg q6h - Order FT4, TSI, TRAb - Should antibody testing return negative or hyperthyroidism uncontrolled still, would add hydrocortisone 100mg every 8 hours - Recommend outpatient follow up with endocrinology Plan discussed with: Patient LARRY TRIPP MD Oct 11, 2024 18:10
[2024-10-11] MEDS: methIMAzole 5 MG TAB PO SCH (18:13)
--- NOTE | 2024-10-11 19:01 | DVHPNRES ---
Progress Note Date Seen: Oct 11, 2024 Resident Creating Document: EVERT YARBROUGH RESIDENT Medical Necessity Reason Pt with a Central, PICC or Fol: No Medical Necessity Reason HYPERTHYROIDISM PALPITATION Subjective Review of Systems This is a 34-year-old male with a past medical history of hyperthyroidism presented to the ED after experiencing episodes of palpitation at home. The patient he has been managed for hyperthyroidism before has been on methimazole altered July of 2024 when his and dark radiologist took him off because he felt like he was doing well and also his thyroid homeless were low. So since July of 2024 patient has not been on any beta-blockers or methimazole. However yesterday according to the patient after climbing a flight of steps he noticed palpitation that did not resolve even with sitting or lying down in bed patient said he felt like he was about choking and that is what prompted him to come to the ED for further evaluation. His initial vitals in the ED recorded heart rate of 134 154, blood pressure measured initially 147/111. He denies chest pain or dizziness. Denies any other acute symptoms at the moment. US thyroid reveal Heterogeneous, hypervascular enlarged thyroid with no focal nodules noted. Differentials include thyroiditis/Graves disease.He was started on propranolol and methimazole 10 mg as he was previously taking. Patient was seen by the junior financial analyst today who recommended methimazole 20 mg b.i.d. and to increase in propranolol to 40 mg q.6 hours. Order FT4, TSI, TRAb pending. According to endocrinology, - Should antibody testing return negative or hyperthyroidism uncontrolled still, would add hydrocortisone 100mg every 8 hours Constitutional: Denies fever no chills no feeling of malaise, SMALLISH PERSON HEENT: Denies headache, ear pain, ear discharges, conjunctivitis, nasal discharge throat pain, DIPLOPIA Cardiovascular: Denies chest pain, orthopnea, PND, or pedal edema; JUST PALPITATION Respiratory: Denies shortness of breath, cough cough, sputum production, hemoptysis, GI: Denies abdominal pain, nausea, vomiting, diarrhea, hematemesis, hematochezia, : Denies frequency, urgency, hematuria, Endocrine: Denies unintentional weight gain or weight loss, feeling of hot flashes, Paxton: Denies easy bruising, bleeding disorders, epistaxis Musculoskeletal: Denies joint pains, muscle aches Psych: No evidence of depression, gunnar, suicidal ideation Objective vital signs Vital Sign Date Time Temp Pulse Resp B/P (MAP) Pulse Ox O2 Delivery O2 Flow Rate FiO2 10/11/24 16:46 97.9 93 18 138/74 (95) 98 97.9 10/11/24 08:00 Room Air* 0 21 Total Intake and Output 10/10/24 10/10/24 10/11/24 15:00 23:00 07:00 Intake Total 375 ml Balance 375 ml medications Current Medications Medications Dose Ordered Sig/Lisa Route Start Time Stop Time Status Last Admin Dose Admin Propranolol HCl 40 mg TID PO 10/11/24 06:00 10/11/24 14:39 40 MG Temazepam 15 mg QHSP PRN PO 10/10/24 18:45 Ondansetron HCl 4 mg Q4HP PRN IV 10/10/24 18:45 Acetaminophen 650 mg Q6HP PRN PO 10/10/24 18:45 Nitroglycerin 0.4 mg Q5MINP PRN SL 10/10/24 18:45 Morphine Sulfate 2 mg Q30M PRN IV 10/10/24 18:45 Methimazole 20 mg Q6HR PO 10/11/24 18:00 10/11/24 18:13 20 MG Examination General Appearance: Alert, Oriented X3, Cooperative, No acute distress; small, cachetic HEENT: Atraumatic, PERRLA, EOMI, Mucous membrane moist/pink, temporal muscle wasting, mild exophthalmos Respiratory: Clear to auscultation, Normal air movement Cardiovascular: tachycardia, Normal S1, Normal S2, No murmurs, no chest wall tenderness Abdominal: NO distention, no tenderness, bowel sounds present, no scars noted Extremities: No clubbing, No cyanosis, No edema, Normal pulses, No tenderness/swelling Skin: No rashes, No breakdown, No significant lesion Neuro: Normal gait, Normal speech, Strength at 5/5 X4 ext, Normal tone, Sensation intact, Cranial nerves 3-12 NL, Reflexes 2+ Psych/Mental Status: Mental status NL, Mood NL laboratory and microbiology Laboratory Tests 10/11/24 07:18 10/10/24 10:38 Test 10/11/24 07:18 Range/Units Serum Glucose 98 74-106 mg/dL Problem List/Assessment/Plan Problem List/Assessment/Plan Assessment Thyrotoxicosis Hypercalcemia Tachycardia palpitation Multiple years of underlying hyperthyroidism of unclear etiology, although likely autoimmune media cachetic, BMI: 18.6 History of hypothyroidism ( Mother) Mild hyponatremia Plan Methimazole 20 mg b.i.d. Propranolol 40 mg q.6 hours Pending Free T4, T4, t3 uptake, TRAB, TSH receptor antibody pending TSH: 0.01 Endocrinology following Recommend outpatient follow up with endocrinology once stable Of care discussed for more than 35 minute Case and plan discussed with Dr. Saavedra Plan discussed with: Patient My Orders My Orders Orders - EVERT YARBROUGH Procedure Category Date Status Time Drug Screen LAB 10/11/24 Logged 08:59 Methimazole Tab PHA 10/11/24 In Process (Tapazole) 18:00 Date of Service: Oct 11, 2024 Billing Provider: JARET SAAVEDRA MD Common Visit Codes: [id number] INP/OBS CARE(HIGH) EVERT YARBROUGH Oct 11, 2024 19:01 JARET SAAVEDRA MD Oct 12, 2024 12:02
[2024-10-11] MEDS: TEMAZEPAM 15 MG CAP PO PRN (23:31)
[2024-10-12] VITALS (8 sets, daily range): BP systolic 99–116; BP diastolic 63–81; PULSE 88–106; RESP 15–20; TEMP 97–98.4; O2SAT 96–98
[2024-10-12 09:06] LABS: Thyrotropin Receptor Antibody 28.5 IU/L (0.00-1.75)
[2024-10-12] MEDS: methIMAzole 5 MG TAB PO SCH (09:44)
[2024-10-12 10:06] LABS: Free Thyroxine Index >13.9 (1.2-4.9); T3 Uptake >56 % (24-39); Thyroxine (T4) >24.9 ug/dL (4.5-12.0)
--- NOTE | 2024-10-12 12:56 | DVHPN2 ---
Progress Note - Dictate Date Seen: Oct 12, 2024 Medical Necessity Reason Pt with a Central, PICC or Fol: No Subjective No acute events overnight. HR remains well controlled. Denies tremors, palpitations, diaphoresis. vital signs Vital Sign Date Time Temp Pulse Resp B/P (MAP) Pulse Ox O2 Delivery O2 Flow Rate FiO2 10/12/24 12:26 89 116/78 10/12/24 09:00 98.4 16 98 98.4 10/12/24 08:25 Room Air* 0 21 Total Intake and Output 10/11/24 10/11/24 10/12/24 15:00 23:00 07:00 Intake Total 600 ml 300 ml Balance 600 ml 300 ml medications Current Medications Medications Dose Ordered Sig/Lisa Route Start Time Stop Time Status Last Admin Dose Admin Temazepam 15 mg QHSP PRN PO 10/10/24 18:45 10/11/24 23:31 15 MG Ondansetron HCl 4 mg Q4HP PRN IV 10/10/24 18:45 Acetaminophen 650 mg Q6HP PRN PO 10/10/24 18:45 Nitroglycerin 0.4 mg Q5MINP PRN SL 10/10/24 18:45 Morphine Sulfate 2 mg Q30M PRN IV 10/10/24 18:45 Methimazole 20 mg BID PO 10/12/24 10:00 10/12/24 09:44 20 MG Propranolol HCl 40 mg Q6HR PO 10/11/24 18:45 10/12/24 12:26 40 MG laboratory and microbiology Laboratory Tests 10/11/24 07:18 10/10/24 10:38 Test 10/11/24 07:18 Range/Units Serum Glucose 98 74-106 mg/dL Assessment/Plan # Severe thyrotoxicosis due to Graves' disease # Hypercalcemia # Tachycardia - Recommend MMI 20mg bid - Recommend propranolol 40mg q6h - Order FT4 daily - Recommend outpatient follow up with endocrinology Plan discussed with: Patient LARRY TRIPP MD Oct 12, 2024 12:55
--- NOTE | 2024-10-12 22:37 | DVHPNRES ---
Progress Note Date Seen: Oct 12, 2024 Resident Creating Document: EVERT YARBROUGH RESIDENT Medical Necessity Reason Pt with a Central, PICC or Fol: No Medical Necessity Reason Thyroid toxicosis Subjective Review of Systems This is a 34-year-old male with a past medical history of hyperthyroidism presented to the ED after experiencing episodes of palpitation at home. The patient he has been managed for hyperthyroidism before has been on methimazole altered July of 2024 when his and dark radiologist took him off because he felt like he was doing well and also his thyroid homeless were low. So since July of 2024 patient has not been on any beta-blockers or methimazole. However yesterday according to the patient after climbing a flight of steps he noticed palpitation that did not resolve even with sitting or lying down in bed patient said he felt like he was about choking and that is what prompted him to come to the ED for further evaluation PN 10/12/2024: Patient is seen and examined today. Lying in bed. He has no new complaints. No acute events overnight. HR remains well controlled. Denies tremors, palpitations, diaphoresis. He actually did mentioned he has an appointment with his camera engineer on next week Wednesday. Also been followed by our camera engineer here. his lab results came back free T4 index > 13.9, Thyroxine T4 > 24.9 , T3 uptake > 56, Thyroid stimulating immunoglobulin pending. Plan is to continue MMI 20 mg bid, propranolol 40 mg q.6 hours daily free T4 and recommend outpatient endocrinology follow up. Objective vital signs Vital Sign Date Time Temp Pulse Resp B/P (MAP) Pulse Ox O2 Delivery O2 Flow Rate FiO2 10/12/24 21:00 97.9 95 20 115/81 (92) 96 97.9 10/12/24 08:25 Room Air* 0 21 Total Intake and Output 10/11/24 10/11/24 10/12/24 15:00 23:00 07:00 Intake Total 600 ml 300 ml Balance 600 ml 300 ml medications Current Medications Medications Dose Ordered Sig/Lisa Route Start Time Stop Time Status Last Admin Dose Admin Temazepam 15 mg QHSP PRN PO 10/10/24 18:45 10/11/24 23:31 15 MG Ondansetron HCl 4 mg Q4HP PRN IV 10/10/24 18:45 Acetaminophen 650 mg Q6HP PRN PO 10/10/24 18:45 Nitroglycerin 0.4 mg Q5MINP PRN SL 10/10/24 18:45 Morphine Sulfate 2 mg Q30M PRN IV 10/10/24 18:45 Methimazole 20 mg BID PO 10/12/24 10:00 10/12/24 09:44 20 MG Propranolol HCl 40 mg Q6HR PO 10/11/24 18:45 10/12/24 17:55 40 MG Examination General Appearance: Alert, Oriented X3, Cooperative, No acute distress; small, cachetic HEENT: Atraumatic, PERRLA, EOMI, Mucous membrane moist/pink, temporal muscle wasting, mild exophthalmos Respiratory: Clear to auscultation, Normal air movement Cardiovascular: tachycardia, Normal S1, Normal S2, No murmurs, no chest wall tenderness Abdominal: NO distention, no tenderness, bowel sounds present, no scars noted Extremities: No clubbing, No cyanosis, No edema, Normal pulses, No tenderness/swelling Skin: No rashes, No breakdown, No significant lesion Neuro: Normal gait, Normal speech, Strength at 5/5 X4 ext, Normal tone, Sensation intact, Cranial nerves 3-12 NL, Reflexes 2+ Psych/Mental Status: Mental status NL, Mood NL laboratory and microbiology Laboratory Tests 10/11/24 07:18 10/10/24 10:38 Test 10/11/24 07:18 Range/Units Serum Glucose 98 74-106 mg/dL Problem List/Assessment/Plan Problem List/Assessment/Plan Assessment Severe thyrotoxicosis due to Graves' disease Hypercalcemia Tachycardia palpitation Multiple years of underlying hyperthyroidism of unclear etiology, although likely autoimmune media cachetic, BMI: 18.6 Severe malnutrition History of hypothyroidism ( Mother) Mild hyponatremia Plan Methimazole 20 mg b.i.d. Propranolol 40 mg q.6 hours FT4 daily TRAB, TSH receptor antibody pending TSH: 0.01 Endocrinology following Recommend outpatient follow up with endocrinology once stable Goal of care discussed for more than 25 minute Case and plan discussed with Dr. Saavedra Plan discussed with: Patient Date of Service: Oct 12, 2024 Billing Provider: JARET SAAVEDRA MD Common Visit Codes: [id number] INP/OBS CARE(HIGH) EVERT YARBROUGH RESIDENT Oct 12, 2024 22:37 JARET SAAVEDRA MD Oct 16, 2024 06:31
[2024-10-12] MEDS: methIMAzole 5 MG TAB ONE (22:49)
[2024-10-13] VITALS (8 sets, daily range): BP systolic 112–132; BP diastolic 58–82; PULSE 90–102; RESP 16–20; TEMP 97.9–99.9; O2SAT 93–100
[2024-10-13 07:33] LABS: Chloride 102 mmol/L (98-107); Potassium 3.8 mmol/L (3.5-5.1); Sodium 137 mmol/L (136-145)
[2024-10-13 07:34] LABS: Anion Gap 10 (5-15); Carbon Dioxide 25 mmol/L (20-31)
[2024-10-13 07:38] LABS: Blood Urea Nitrogen 12 mg/dL (9-23)
[2024-10-13 07:39] LABS: BUN/Creatinine Ratio 22.6 (10.0-20.0); Glucose 91 mg/dL (74-106)
[2024-10-13] MEDS: Ensure HIGH Protein Chocolate 8oz Bottle PO SCH (08:00)
--- NOTE | 2024-10-13 12:05 | DVHPN2 ---
Subjective The patient is seen and examined at bedside. Heart palpitation improved. Reviewed: Care Plan, H&P, Labs, Medications, Previous Orders, Radiology Changes from previous H/P or p: No Changes Objective Vitals Vital Signs Date Time Temp Pulse Resp B/P (MAP) Pulse Ox O2 Delivery O2 Flow Rate FiO2 10/13/24 11:32 95 132/78 10/13/24 09:00 99.9 18 96 99.9 10/13/24 08:20 Room Air* 0 21 Intake/Output Intake and Output 10/13/24 07:00 Intake Total 1245 ml Output Total 150 ml Balance 1095 ml Intake Oral 1245 ml Output Urine Total 150 ml # Voids 10 General Appearance: Alert, Oriented X3, Cooperative, No acute distress HEENT: Atraumatic, PERRLA, EOMI, Mucous membr. moist/pink Neck: Supple Lungs: Clear to auscultation, Normal air movement Cardiovascular: Regular rate, Normal S1, Normal S2, No murmurs, Gallops, Rubs Abdomen: Normal bowel sounds, Soft, No tenderness Neuro: Cranial nerves 3-12 NL Psych/Mental Status: Mental status NL Medications Current Medications Medications Dose Ordered Sig/Lisa Route Start Time Stop Time Status Last Admin Dose Admin Temazepam 15 mg QHSP PRN PO 10/10/24 18:45 10/12/24 23:43 15 MG Ondansetron HCl 4 mg Q4HP PRN IV 10/10/24 18:45 Acetaminophen 650 mg Q6HP PRN PO 10/10/24 18:45 Nitroglycerin 0.4 mg Q5MINP PRN SL 10/10/24 18:45 Morphine Sulfate 2 mg Q30M PRN IV 10/10/24 18:45 Methimazole 20 mg BID PO 10/12/24 10:00 10/13/24 09:56 20 MG Propranolol HCl 40 mg Q6HR PO 10/11/24 18:45 10/13/24 11:32 40 MG Enteral Nutritional Formula 240 ml TIDWM PO 10/13/24 08:00 Laboratory Results Laboratory Tests 10/10/24 10:38 10/13/24 06:05 Chemistry Test 10/13/24 06:05 Calcium Level 11.0 mg/dL (8.7-10.4) H Labs and/or images reviewed: Labs reviewed by me Assessment/Plan Assessment/Plan Assessment Severe thyrotoxicosis due to Graves' disease Hypercalcemia Tachycardia palpitation Multiple years of underlying hyperthyroidism of unclear etiology, although likely autoimmune media cachetic, BMI: 18.6 Severe malnutrition History of hypothyroidism ( Mother) Mild hyponatremia Plan Methimazole 20 mg b.i.d. Propranolol 40 mg q.6 hours FT4 daily TRAB, TSH receptor antibody pending TSH: 0.01 Endocrinology following Recommend outpatient follow up with endocrinology once stable Plan discussed with: Patient Date of Service: Oct 13, 2024 Billing Provider: JARET WARREN MD Common Visit Codes: [id number] INP/OBS CARE(HIGH) JARET WARREN MD Oct 13, 2024 12:05
[2024-10-13 21:06] LABS: Thyroid Stimulating Immunoglob 22.3 IU/L (0.00-0.55)
[2024-10-14 01:00] VITALS: BP 110/66; PULSE 89; RESP 20; TEMP 98.3; O2SAT 97
[2024-10-14 05:00] VITALS: BP 116/75; PULSE 81; RESP 18; TEMP 98.7; O2SAT 97
[2024-10-14 08:00] VITALS: PULSE 83; PULSE 92; RESP 18; O2SAT 98
[2024-10-14 08:49] VITALS: BP 121/81; PULSE 83; RESP 18; TEMP 98; O2SAT 98
[2024-10-14 13:00] VITALS: BP 131/86; PULSE 82; RESP 19; TEMP 97.4; O2SAT 99
--- NOTE | 2024-10-14 15:04 | DVHDS2 ---
Discharge Summary Date of Admission Oct 10, 2024 at 18:41 Date of Discharge: Oct 14, 2024 Admitting Diagnosis Severe thyrotoxicosis due to Graves' disease Hypercalcemia Tachycardia palpitation Multiple years of underlying hyperthyroidism of unclear etiology, although likely autoimmune media cachetic, BMI: 18.6 Severe malnutrition Mild hyponatremia Labs/Diagnostic Data: Laboratory Results Test 10/14/24 06:10 10/13/24 06:05 10/11/24 14:45 10/10/24 19:43 Free Thyroxine (T4) Calculated 5.64 ng/dL (0.89-1.76) Sodium Level 137 mmol/L (136-145) Potassium Level 3.8 mmol/L (3.5-5.1) Chloride Level 102 mmol/L (98-107) Carbon Dioxide Level 25 mmol/L (20-31) Anion Gap 10 (5-15) Blood Urea Nitrogen 12 mg/dL (9-23) Creatinine 0.53 mg/dL (0.700-1.30) Glomerular Filtration Rate Calc 134 mL/min (>90) BUN/Creatinine Ratio 22.6 (10.0-20.0) Serum Glucose 91 mg/dL (74-106) Calcium Level 11.0 mg/dL (8.7-10.4) Thyroid Stimulating Immunoglobulin 22.30 IU/L (0.00-0.55) Thyrotropin Receptor Antibody 28.50 IU/L (0.00-1.75) Free Thyroxine Index >13.9 (1.2-4.9) Thyroxine (T4) >24.9 ug/dL (4.5-12.0) Triiodothyronine (T3) Uptake >56 % (24-39) Test 10/10/24 10:38 White Blood Count 8.9 10^3/uL (4.4-10.8) Red Blood Count 4.99 10^6/uL (4.5-5.90) Hemoglobin 14.9 g/dL (13.5-17.5) Hematocrit 43.0 % (41.0-53.0) Mean Corpuscular Volume 86.2 fL (80.0-100.0) Mean Corpuscular Hemoglobin 30.0 pg (28.0-32.0) Mean Corpuscular Hemoglobin Concent 34.8 g/dL (32.0-36.0) Red Cell Distribution Width 12.0 % (11.8-14.3) Platelet Count 312 10^3/uL (140-450) Mean Platelet Volume 8.7 fL (6.9-10.8) Neutrophils (%) (Auto) 50.6 % (37.0-80.0) Lymphocytes (%) (Auto) 37.8 % (10.0-50.0) Monocytes (%) (Auto) 11.1 % (0.0-12.0) Eosinophils (%) (Auto) 0.3 % (0.0-7.0) Basophils (%) (Auto) 0.2 % (0.0-2.0) Neutrophils # (Auto) 4.5 10 ^3/uL (1.6-8.6) Lymphocytes # (Auto) 3.3 10 ^3/uL (0.4-5.4) Monocytes # (Auto) 1.0 10 ^3/uL (0-1.3) Eosinophils # (Auto) 0 10 ^3/uL (0-0.8) Basophils # (Auto) 0 10 ^3/uL (0-0.2) Nucleated Red Blood Cells 0.1 % Troponin I High Sensitivity 30 ng/L (</=54) Thyroid Stimulating Hormone (TSH) 0.01 uIU/mL (0.55-4.78) Other Laboratory Tests 10/13/24 06:05 10/10/24 10:38 Brief Hx & Hospital Course: This is a 34 years old male came to emergency department because of heart palpitation. Patient stated that he had history of hyperthyroidism. He was taking off methimazole since July of last year by his primary care physician. Patient said he had a intermittent heart palpitation. The symptoms associated with shortness a breath. He is supposed to see his general utility worker next week however because the heart palpitation so severe he decided to come to hospital for further evaluation. The patient was found to have hyperthyroidism with TSH less than 0.01. His FT4 was 6.5. The patient was admitted. The patient was put on methimazole. Patient Access Representative see the patient and recommend methimazole 20 mg b.i.d. and propranolol 40 mg q.6 hours. The patient continuing to monitor TSH and free T4 for couple day. Today his tachycardia improved. He did not complain of any heart palpitation. Patient was advice to follow up with general utility worker as outpatient. Per general utility worker, patient needs to take methimazole 20 mg twice per day for one week then switch to 20 mg daily. Continuing propranolol 40 mg q.6 hours. Activity as tolerated. Diet per home diet. Follow up with primary care physician 1-2 weeks. Follow up with endocrinology per schedule. Physical exam: HEENT: Normocephalic atraumatic pupils equal react to light and accommodation. Extraocular muscles intact, conjunctiva pink, oropharynx moist, no thrush, no exudate. Lymphatic: No lymphadenopathy Cardiovascular exam: S1, S2 was heard. No murmurs, rubs, gallops Lung: Clear on auscultation bilaterally, no wheeze, rale, rhonchi. GI: Abdominal soft, nondistended, nontenderness, positive bowel sounds. Extremity: No crepitus, cyanosis, edema. Pedal pulses present bilateral. Full range of motion. Skin: Normal turgor, no rash. Psych: Alert, oriented x3. Neurology: No focal deficits, cranial nerve II to XII grossly intact. This medical document was created using an electronic medical record system with [employer] direct computerized dictation system. Although this document has been carefully reviewed, there may still be some phonetic and typographical errors. These areas are purely typographical due to imperfections of the software programs, and do not reflect any compromise in the patient's medical care. Condition at Discharge: Stable Final Diagnosis/Problems List Severe thyrotoxicosis due to Graves' disease Hypercalcemia Tachycardia palpitation Multiple years of underlying hyperthyroidism of unclear etiology, although likely autoimmune media cachetic, BMI: 18.6 Severe malnutrition Mild hyponatremia Discharge Disposition: Home Discharge Statement: "Patient was advised to return to the ER or call 911 if any headaches, dizziness, shortness of breath, chest pain, abdominal pain, bleeding, fevers, or worsening of medical condition. Patient was counseled about treatment plan, medications, possible side effects, patientverbalized understanding. All questions were answered to the best of my ability. This discharge took greater then 30 minutes in planning, reviewing documentation, counseling the patient, and discussing with other team members." ASSESSMENT ASSESSMENT Assessment Date of Service: Oct 14, 2024 Billing Provider: JARET WARREN MD Common Visit Codes: [id number] DISCH DAY >30min JARET WARREN MD Oct 14, 2024 15:04
[2024-10-14] MEDS ORDERED: METH-552 PO (15:08)
[2024-10-14] MEDS ORDERED: PROP40TA6 PO (15:08)
--- NOTE | 2024-10-14 15:52 | DVHPN2 ---
Progress Note - Dictate Date Seen: Oct 14, 2024 Medical Necessity Reason Pt with a Central, PICC or Fol: No Subjective No acute events overnight. No acute complaints this AM. vital signs Vital Sign Date Time Temp Pulse Resp B/P (MAP) Pulse Ox O2 Delivery O2 Flow Rate FiO2 10/14/24 13:00 97.4 82 19 131/86 (101) 99 97.4 10/14/24 08:00 Room Air* 0 21 Total Intake and Output 10/13/24 10/13/24 10/14/24 15:00 23:00 07:00 Intake Total 920 ml 120 ml Balance 920 ml 120 ml medications Current Medications Medications Dose Ordered Sig/Lisa Route Start Time Stop Time Status Last Admin Dose Admin Temazepam 15 mg QHSP PRN PO 10/10/24 18:45 10/12/24 23:43 15 MG Ondansetron HCl 4 mg Q4HP PRN IV 10/10/24 18:45 Acetaminophen 650 mg Q6HP PRN PO 10/10/24 18:45 Nitroglycerin 0.4 mg Q5MINP PRN SL 10/10/24 18:45 Morphine Sulfate 2 mg Q30M PRN IV 10/10/24 18:45 Methimazole 20 mg BID PO 10/12/24 10:00 10/14/24 10:11 20 MG Propranolol HCl 40 mg Q6HR PO 10/11/24 18:45 10/14/24 12:04 40 MG Enteral Nutritional Formula 240 ml TIDWM PO 10/13/24 08:00 10/14/24 12:05 240 ML objective Gen - lying in bed, no acute distress HEENT - nontender thyroid CV - RRR Resp - CTAB Ext - no edema laboratory and microbiology Laboratory Tests 10/13/24 06:05 10/10/24 10:38 Test 10/13/24 06:05 Range/Units Serum Glucose 91 74-106 mg/dL Assessment/Plan # Severe thyrotoxicosis due to Graves' disease # Hypercalcemia # Tachycardia - Continue MMI 20mg bid - Continue propranolol 40mg q6h - Order FT4 daily - Recommend outpatient follow up with endocrinology Discharge recommendations: - Methimazole 20mg bid for 1 week followed by 20mg daily - Atenolol 50mg daily - Repeat TSH in 4-6 weeks post-discharge - Follow up with endocrinology as outpatient Plan discussed with: Patient LARRY TRIPP MD Oct 14, 2024 15:51
[2024-10-14 16:33] VITALS: BP_SYST 109; BP_SYST 131; BP_DIAS 72; BP_DIAS 86; PULSE 82; PULSE 83; RESP 19; TEMP 97.4; TEMP 97.8; O2SAT 95; O2SAT 99
== END 2024-10-14 17:14 | disposition home or self-care (01) | DRG 427 ==
LOC: ER 09:49 → TELE 18:41 → TELE-WESTW 20:50
PROVIDERS: ADMIT Student in an Organized Health Care Education/Training Program; ATTEND Student in an Organized Health Care Education/Training Program
DX: E05.00 Thyrotoxicosis with diffuse goiter without thyrotoxic crisis or storm (principal); R64 Cachexia; E43 Unspecified severe protein-calorie malnutrition; E83.52 Hypercalcemia; I10 Essential (primary) hypertension; E87.1 Hypo-osmolality and hyponatremia; Z68.1 Body mass index [BMI] 19.9 or less, adult; Z90.49 Acquired absence of other specified parts of digestive tract; Z87.891 Personal history of nicotine dependence; Z82.49 Family history of ischemic heart disease and other diseases of the circulatory system
CPT/HCPCS: 36415; 76536; 80048; 84439; 84443; 84445; 84484; 85025; 93005; 99291; G0378